=== PATIENT | male | born 1960 | race Caucasian/White ===

== ENCOUNTER 2024-12-28 16:41 | Emergency (ER) | payer MEDICAID, SELFPAY ==
[2024-12-28 16:41] VITALS: BMI 39.1
[2024-12-28 16:54] VITALS: BP 162/75; PULSE 71; RESP 18; TEMP 37.2; O2SAT 98
--- NOTE | 2024-12-28 17:13 | EKG_ITS ---
[facility] Test Date: 2024-12-28 Pat Name: DEBBIE ALBARRAN Department: Room: - Gender: Male Urgent Care Physician: : [id number] Requested By: Elise Motley ([facility]) [employer] Order Number: [id number] Reading MD: Elise Motley ([facility]) [employer] Measurements Intervals [place] Rate: 75 P: 68 [place]: 178 QRS: -17 QRSD: 108 T: 19 QT: 367 QTc: 411 Interpretive Statements SINUS RHYTHM POSSIBLE LATERAL MYOCARDIAL INFARCTION , OF INDETERMINATE AGE [30 ms Q WAVE IN I/aVL/V5/V6] No previous ECG available for comparison /[id number]/[email or web address]/[id number].pdf
--- NOTE | 2024-12-28 17:13 | XR_ITS ---
Examination: PA lateral chest 2 views Technique: Upright PA lateral chest 2 views Exam date and time: December 28, 2024 1727 hrs. Indications: Onset chest pain today. Findings: Normal heart size Lungs are clear. Moderate thoracic spondylosis Impression: No active disease
--- NOTE | 2024-12-28 17:16 | PD.EDRME ---
Rapid Medical Screening Exam RME Arrival date/time: 12/28/24 16:41 This is a 64-year-old male presents to the emergency department with complaints of acute chest pain. I have greeted and performed a focused initial assessment of this patient. Initial appropriate labs ordered at this time. A comprehensive ED assessment and evaluation of the patient and analysis of all test and completion of medical decision making process will be conducted by additional ED provider. Chief Complaint: Chest Pain Time Seen by Provider: 12/28/24 16:51 Vital signs: Vital Signs Temperature 99.0 F 12/28/24 16:54 Pulse Rate 71 12/28/24 16:54 Respiratory Rate 18 12/28/24 16:54 Blood Pressure 162/75 H 12/28/24 16:54 Pulse Oximetry (%) 98 12/28/24 16:54 Oxygen Delivery Method Room Air 12/28/24 16:54
[2024-12-28 17:35] LABS: Basophils % (Auto) 0 % (0-2.5); Eosinophils # (Auto) 0.3 Thou/mm3 (0.0-0.5); Eosinophils % (Auto) 3 % (0-10); Hematocrit 41.8 % (41.0-53.0); Hemoglobin 14.3 g/dL (13.5-16.0); Immature Granulocytes % (Auto) 0 % (0-0); Immature Granulocytes Auto 0.01 Thou/mm3 (0.00-0.00); Lymphocytes # (Auto) 2.8 Thou/mm3 (1.0-4.8); Lymphocytes % (Auto) 26 % (10-50); Mean Corpuscular HGB Conc 34.2 g/dl (31.0-37.0); Mean Corpuscular Hemoglobin 30.8 pg (25.0-35.0); Mean Corpuscular Volume 90 fL (80-100); Monocytes # (Auto) 0.8 Thou/mm3 (0.0-0.8); Monocytes % (Auto) 8 % (0-12); Neutrophils # (Auto) 6.7 Thou/mm3 (1.8-7.7); Neutrophils % (Auto) 63 % (37-80); Nucleated Red Blood Cell % 0 /100 WBC (0); Platelet Count 259 Thou/mm3 (140-440); RDW Standard Deviation 43.6 fL (35.1-43.9); Red Blood Count 4.64 Miln/mm3 (4.50-5.90); White Blood Count 10.6 Thou/mm3 (3.8-10.6)
[2024-12-28 17:54] LABS: Alanine Aminotransferase 18 U/L (10-49); Albumin, Serum 4.3 gm/dL (3.4-4.8); Albumin/Globulin Ratio 1.5 (1.2-2.2); Alkaline Phosphatase 115 U/L (46-116); Anion Gap 7 (7-16); Aspartate Amino Transferase 16 U/L (0-34); BUN/Creatinine Ratio 14 Ratio (12-20); Bilirubin,Total 0.5 mg/dL (0.3-1.2); Blood Urea Nitrogen 13 mg/dL (9-23); Calcium 9.5 mg/dL (8.3-10.6); Calcium (Corrected) 9.5 mg/dL (8.5-10.1); Carbon Dioxide 30.1 mMol/L (20.0-31.0); Chloride 103 mMol/L (98-107); Creatinine (Component) 0.9 mg/dL (0.6-1.3); Globulin 2.9 gm/dL (2.3-3.5); Glucose 135 mg/dL (74-106); Lipase 31 U/L (12-53); Magnesium 2.1 mg/dL (1.6-2.6); Osmolality,Calculated 281 (275-295); Potassium 4.1 mMol/L (3.4-5.1); Sodium 140 mMol/L (136-145); Total Protein 7.2 gm/dL (5.7-8.2); Troponin I < 0.020 ng/mL (0.0-0.045); eGFR > 60 See Note
[2024-12-28 18:11] LABS: Collection Type, Urine Clean Catch; Squamous Epithelial Cell,Urine 0 /hpf (0-5)
[2024-12-28 18:28] LABS: Bilirubin,Urine Negative (Negative); Blood,Urine Negative (Negative); Clarity,Urine Clear (Clear/Hazy); Color,Urine Yellow (Lt Yel-Yel); Glucose, Urine Negative (Negative); Ketones,Urine Negative (Negative); Leukocyte Esterase,Urine Negative (Negative); Nitrite,Urine Negative (Negative); PH,Urine 5.5 (5.0-7.0); Protein,Urine Trace (Neg - Trace); RBC,Urine 2 /hpf (0-3); Specific Gravity,Urine 1.031 (1.001-1.035); Urobilinogen,Urine Negative mg/dL (0.0-1.0); WBC,Urine 1 /hpf (0-5)
[2024-12-28 21:25] VITALS: BP 153/97; PULSE 63; RESP 19; TEMP 36.9; O2SAT 95
--- NOTE | 2024-12-28 21:26 | EDNOTE_ITS ---
ED Chest Pain RME/HPI General Chief Complaint: Chest Pain Stated Complaint: CHEST PAIN Time Seen by Provider: 12/28/24 16:51 Source: patient Arrival date/time: 12/28/24 16:41 Mode of arrival: ambulatory Limitations: no limitations RME / HPI RME / HPI narrative: 12/28/24 16:41 This is a 64-year-old male presents to the emergency department with complaints of acute chest pain. I have greeted and performed a focused initial assessment of this patient. Initial appropriate labs ordered at this time. A comprehensive ED assessment and evaluation of the patient and analysis of all test and completion of medical decision making process will be conducted by additional ED provider. DR HAWKINS MAIN ED EVALUATION: 64-year-old male presenting to the Emergency Department with complaints of substernal chest pain nonradiating accompanied by shortness of breath and headache. He describes the chest pain as constant, with a pressure-like and tight sensation, rating it as 5/10 in severity. Symptoms began two days ago and have persisted without significant relief. Also c/o back pain which is chronic and MRI is pending. He denies fever in the past 48 hours, recent travel, or receiving a flu vaccination in the last 12 months. He has no history of tobacco, alcohol, or substance use. Related Data Previous Rx's ?Medication ?Instructions ?Recorded ibuprofen 800 mg tablet 800 mg PO TID PRN pain #30 t abs 08/13/22 Allergies Allergy/AdvReac Type Severity Reaction Status Date / Time No Known Allergies Allergy Verified 12/28/24 16:44 Review of Systems Review of Systems Systems Reviewed: All systems reviewed, normal except as documented Past Medical History Past Medical History CARDIAC: Negative Congestive Heart Failure RESPIRATORY: Negative Chronic Obstructive Pulmonary Disease (COPD) GENITOURINARY: Negative Renal Disease ENDOCRINE: Negative Diabetes Mellitus Type 1 or Diabetes Mellitus Type 2 Social History SMOKING STATUS: Never smoker ED Exam Narrative Physical exam: GENERAL APPEARANCE: alert and oriented x 4, well-developed, well-nourished, no acute distress VITALS: All vitals were reviewed and the pulse ox is 95% on room air, which is normal according to my interpretation. HEENT: Normocephalic, atraumatic; pupils equal, round, reactive to light; EOMI; mucous membranes pink, moist; oropharynx clear NECK: Supple LUNGS: CTABL; no wheezes, no rales, no rhonchi HEART: Regular rate, regular rhythm; normal S1, S2; no murmurs ABDOMEN: non distended; normal BS; soft, no tenderness, no guarding, no rebound; no masses, no organomegaly, no hernia BACK: no CVA tenderness EXTREMITIES: atraumatic; no edema NEUROLOGIC: awake; alert and oriented x4; cranial nerves II-XII grossly intact; no focal sensory or motor deficits PSYCHIATRIC: appropriate mood and affect SKIN: warm, dry, normal color; no rashes General Limitations: Present no limitations Course Course Course Narrative: CXR is ordered for determining etiology of chest pain. Quality Measures none Orders Category Date Time Status EKG (ED ONLY) *Do not use* NOW Care 12/28/24 17:13 Completed NPO STAT Care 12/28/24 17:13 Completed EKG (ED Only) Stat Exams 12/28/24 17:13 Draft XR chest 2V Stat Exams 12/28/24 17:13 Completed CBC Stat Lab 12/28/24 17:21 Completed Comprehensive Metabolic Panel Stat Lab 12/28/24 17:21 Completed Lipase Stat Lab 12/28/24 17:21 Completed Magnesium Stat Lab 12/28/24 17:21 Completed Troponin I Stat Lab 12/28/24 17:21 Completed Troponin I Stat Lab 12/28/24 21:33 Completed Urinalysis Stat Lab 12/28/24 17:47 Completed Vital Signs Vital signs: Vital Signs Temperature 99.0 F 12/28/24 16:54 Pulse Rate 71 12/28/24 16:54 Respiratory Rate 18 12/28/24 16:54 Blood Pressure 162/75 H 12/28/24 16:54 Pulse Oximetry (%) 98 12/28/24 16:54 Oxygen Delivery Method Room Air 12/28/24 16:54 Chest Pain MDM Narrative MDM Narrative:: Scribe Attestation: Olga Bullard am scribing for and in the presence of Dr. Hawkins. Provider Notation: Although this document has been carefully reviewed, there may still be some phonetic and other typographical errors. These errors are purely grammatical due to imperfections in the software program and should not be construed in any way to compromise the substance of the patient's medical care during this visit. Patient data External records reviewed:: [facility] previous records Clinical information provided by:: patient Social determinants that could affect healthcare access:: none Patient has the following chronic illnesses:: see PMH How is presenting disease/condition affected by chronic disease/condition?: no chronic disease Evaluation data The following diagnostics were reviewed and interpreted by me:: lab results and radiology exam(s) Lab and/or radiology exams considered but not ordered:: na Interpretation Summary: I personally reviewed the radiology data and agree with the radiologist's interpretation. Examination: PA lateral chest 2 views Technique: Upright PA lateral chest 2 views Exam date and time: December 28, 2024 1727 hrs. Indications: Onset chest pain today. Findings: Normal heart size Lungs are clear. Moderate thoracic spondylosis Impression: No active disease Dictated By: Hi Huddleston MD Medications / Prescriptions Medications or Prescriptions considered but not ordered:: na Medication administrations:: na Consultations Consultation(s) initiated? (list below): No Diagnosis Chest Pain Differential Diagnosis: fracture of rib, atypical chest pain, costochondritis, chest pain and biliary colic Most likely diagnosis given after review of the tests above:: Chest pain Admission Indicated Admission indicated?: not indicated Admission Request Was there a request for admission?: No Disposition Plan Disposition Plan: Discharge Discharge Attestation Discharge Attestation: The patient and all family members were given an opportunity to ask questions an d understood the discharge instructions. Discharge instructions specifically effects, indications for sooner follow up or return to the emergency department, and the expected course of current diagnosis. Patient condition: Stable Discharge Plan Plan Patient Disposition: HOME (Self Care) Prescriptions/Referrals Prescriptions/Med Rec: No Action ibuprofen 800 mg tablet 800 mg PO TID PRN (Reason: pain) Qty: 30 0RF Referrals: No Primary/Family,Physician [Primary Care Provider] - In 1 week Problem List Clinical Impression: Chest pain Patient/Caregiver Discharge Instructions Education Materials: ED Chest Pain, Uncertain Cause Print Language: Upper Sorbian Stand Alone Forms: Diana Award Info., Patient Portal Info Letter
[2024-12-28 21:53] LABS: Troponin I < 0.020 ng/mL (0.0-0.045)
== END 2024-12-28 23:09 | disposition home or self-care (01) ==
PROVIDERS: Nurse Practitioner Primary Care; Emergency Provider Emergency Medicine
DX: R07.9 Chest pain, unspecified (principal); R06.02 Shortness of breath; R51.9 Headache, unspecified
CPT/HCPCS: 36415; 71046; 80053; 81001; 83690; 83735; 84484; 85025; 93005; 99283